=== PATIENT | female | born 1990 ===

== ENCOUNTER 2017-08-06 17:28 | Emergency (ER) | payer SELFPAY ==
[2017-08-06 18:08] VITALS: RESP 20; O2SAT 100
--- NOTE | 2017-08-06 19:59 | C.PDOC ---
History Of Present Illness 27 y/o female c/o 4 days of dry persistent cough with runny nose, pleuritic cp when coughing and sob when coughing. no fevers. no sick contacts. no recent travel. Time Seen by Provider: 08/06/17 19:27 Chief Complaint (Nursing): Cough, Cold, Congestion History Per: Patient History/Exam Limitations: no limitations Onset/Duration Of Symptoms: Days (5) Current Symptoms Are (Timing): Still Present Sick Contacts (Context): None Associated Symptoms: Cough. denies: Fever, Chills Ear Symptoms: Bilateral: None Past Medical History Reviewed: Historical Data, Nursing Documentation, Vital Signs Vital Signs: Last Vital Signs Temp 98.2 F 08/06/17 18:06 Pulse 73 08/06/17 18:06 Resp 20 08/06/17 18:06 BP 142/89 08/06/17 18:06 Pulse Ox 100 08/06/17 19:58 - Medical History PMH: No Chronic Diseases Family History: States: Unknown Family Hx - Social History Hx Tobacco Use: No Hx Alcohol Use: No Hx Substance Use: No - Immunization History Hx Tetanus Toxoid Vaccination: Yes Hx Influenza Vaccination: No Hx Pneumococcal Vaccination: No Review Of Systems Constitutional: Negative for: Fever, Chills Cardiovascular: Negative for: Chest Pain, Palpitations Respiratory: Positive for: Cough, Shortness of Breath (when coughing), Pleuritic Pain Gastrointestinal: Negative for: Abdominal Pain Physical Exam - Physical Exam Appears: Non-toxic, Other (uncomfortable with dry persistent cough) Skin: Warm, Dry Head: Atraumatic, Normacephalic Eye(s): bilateral: Normal Inspection Oral Mucosa: Moist Tongue: Normal Appearing Throat: No Erythema, No Exudate Neck: Supple Chest: Symmetrical, No Deformity, No Tenderness Cardiovascular: Rhythm Regular, No Murmur Respiratory: Normal Breath Sounds, No Accessory Muscle Use, No Rales, No Rhonchi , No Wheezing Gastrointestinal/Abdominal: Soft, No Tenderness ED Course And Treatment O2 Sat by Pulse Oximetry: 100 Medical Decision Making Medical Decision Making: pt with persistent cough, lungs cta, cxr no acute disease on my view. pt given tessalon, saline and albuterol nebs, now with decreased cough and feeling better. . will d/c home with albuterol mdi and tessalon perles. Disposition Counseled Patient/Family Regarding: Studies Performed, Diagnosis, Need For Followup, Rx Given - Disposition Referrals: [facility] [Outside] Disposition: HOME/ ROUTINE Disposition Time: 21:35 Condition: IMPROVED Additional Instructions: Tylenol or Motrin for pain. Tessalon perles and Albuterol for cough. Follow up with your doctor or in medical clinic in a few days. Tylenol o Motrin para el dolor. Tessalon perles y Albuterol para la tos. Yan un seguimiento con [place] mdico o en la clnica mdica en unos epstein. Instructions: Upper Respiratory Infection (ED) Forms: Gen Discharge Inst [place], [facility] ([place]) - Clinical Impression Clinical Impression: Upper respiratory infection
[2017-08-06] MEDS ORDERED: Albuterol 0.083% Inhal Sol (2.5 mg/3 mL) UD ONE ×2 (20:44→21:00)
[2017-08-06] MEDS ORDERED: Albuterol 0.083% Inhal Sol (2.5 mg/3 mL) UD INH STA (20:46)
[2017-08-06 21:52] VITALS: BP 130/85; PULSE 72; TEMP 97.4
--- NOTE | 2017-08-07 08:39 | RAD ---
Chest x-ray single frontal view History: Cough. Comparison: 08/04/2017 Findings: Prominent diffuse confluent bilateral airspace opacities throughout both lungs. Associated moderate to severe venous congestion. More confluent airspace opacification at the right lung base. Cardiomegaly. Degenerative changes in the spine. Impression: Prominent diffuse confluent bilateral airspace opacities throughout both lungs. Associated moderate to severe venous congestion. More confluent airspace opacification at the right lung base. Cardiomegaly.
--- NOTE | 2017-08-07 12:45 | CARD ---
APPROVED REPORT EKG Measurement Heart [id number] <Conclusion> Normal sinus rhythm Normal ECG
== END 2017-08-06 21:54 | disposition home or self-care (01) ==
LOC: C.ER 17:28
DX: J06.9 Acute upper respiratory infection, unspecified (principal)

== ENCOUNTER 2018-06-01 11:58 | Emergency (ER) | payer OTHER ==
--- NOTE | 2018-06-01 12:55 | OBHP ---
Datetime: 06/01/2018 12:42 IP Adm Impression: , intrauterine IP Admit Plan: Observation/Evaluation; Discharge home Admit Comment, IP Provider: with IUP at 35+4 weeks by LMP 09/25/17 presents with decreaed fet al movement, cough POB: 1 FT , 1 SAB PGYN: LMP 09/25, denies STIs, denies abnormal paps PMH: denies PSH: roel NKDA taking vitamins unsure if has had flu shot viatls stable afebrile category 1 tracing some irritabilty on monitor, cervix is closed and firm, no symptoms of labor plan: explained kick counts patient has US appt next week on Friday recommended OTC cepachol or guafenesin for cough relief Dc home FHR - Baseline A Provider: 140 Membranes, Provider: Intact Gestation - Est Wks by US: 35+4 EGA AdmitDate IP: 35.4 Vital Signs Provider: Reviewed; Within Normal Limits IP Chief Complaint: Maternal discomfort NICHD Accel Fetus A IP Provider: 15X15 FHR Category Provider Fetus A: Category I NICHD Decel Fetus A IP Provider: None Dilatation, Provider: 0 Effacement, Provider: 0 Station, Provider: -3
[2018-06-02 13:55] VITALS: TEMP 99.3
== END 2018-06-01 13:10 | disposition home or self-care (01) ==
LOC: C.EROB 11:58
DX: O36.8130 Decreased fetal movements, third trimester, not applicable or unspecified (principal); Z3A.35 35 weeks gestation of pregnancy

== ENCOUNTER 2018-06-16 08:20 | Inpatient (IN) | payer MEDICAID, OTHER ==
[2018-06-16] MEDS ORDERED: Lactated Ringer's 1,000 ML IV ONE (09:47)
--- NOTE | 2018-06-16 10:11 | OBHP ---
Datetime: 06/16/2018 09:52 IP Adm Impression: Term, intrauterine ; No Active Labor; Ruptured Membranes IP Admit Plan: Admit to unit; Initiate labor protocol Admit Comment, IP Provider: 28 y.o. , LMP 09/25/17, YOSELYN 07/02/18, EGA 37w 5d c/o ROM at 0500 hours with onset of Ctx at the same time, every 30 minute, pain scale 3/10. Also, c/o nausea and vo miting x 5 episodes. Denies headaches, RUQ or epigastric pain. (+) AFM; denies VB. care: [facility] - no issues P Ob: 2007, , male, 4lb at 38weeks, [facility]; no complications 2014, Spont Ab, 12 weeks, n o D_C P [employer]: 12 x monthly x 3. Denies h/o STIs, abnormal Pap, myomata, ovarian cysts PMH: denies PSH: denies NKDA Meds: PNV - QD, last took 06/15 @ 1300 hours Soc HX: denies tobacco, illicit dirug or EtOH use. Lives wtih FOB; together x 7 years. Son lives i n [facility]. Unemployed Fam Hx: Mother alive 52 y.o. Father hari 54 y.o., both, no med issues. No known fam h/o cancer P.E.: as above. Small, in NAD. Awake, alert, oriented to time, person and place. 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 Assessment: 28 y.o. P1011, 37w 5d premature ROM, Category 1 tracing. D/W patient possible cervical ripening and possible pitocin augmentation. Also discussed options for pain management. Patient expr essed an understanding and offered no questions. Patient is clinically stable. Plan: 1) Admit 2) NPO 3) Admissions labs 4) Continuous EFM 5) Observe for progression of labor 6) Anticipate vaginal delivery. Pelvic Type - PN: Adequate Extremities - PN: Normal Abdomen - PN: Normal Back - PN: Normal Breast - PN: Not Done Lungs - PN: Normal Heart - PN: Normal Thyroid - PN: Not Done Neurologic - PN: Normal HEENT - PN: Normal General - PN: Normal Presentation-Admit: Vertex FHR - Baseline A Provider: 145 Membranes, Provider: Ruptured Contraction Comments Provider: 2 Comments, ACOG Physical Exam: Abdomen: Gravid. Soft. Fundal height 36 cm Perineum: wet Speculum: (+) pooling; (+) nitrazine Extremities: no calf tenderness or edema All other systems reviewed and are negative. Gestation - Est Wks by US: 37 w 5 d IP Hx Assessment: The History has been Reviewed and is Current EGA AdmitDate IP: 37.5 IP Indication for Induction: Not Applicable IP Chief Complaint: Suspected ruptured membranes NICHD Variability Prov Fetus A: Moderate 6-25bpm NICHD Accel Fetus A IP Provider: 15X15 Dilatation, Provider: 2 Effacement, Provider: 30 Station, Provider: -3 Genitourinary Exam: Normal
--- NOTE | 2018-06-16 10:14 | OBADHP ---
Datetime: 06/16/2018 09:52 Admit Comment, IP Provider: 28 y.o. , LMP 09/25/17, YOSELYN 07/02/18, EGA 37w 5d c/o ROM at 0500 hours with onset of Ctx at the same time, every 30 minute, pain scale 3/10. Also, c/o nausea and vo miting x 5 episodes. Denies headaches, RUQ or epigastric pain. (+) AFM; denies VB. 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 Denies h/o STIs, abnormal Pap, myomata, ovarian cysts PMH: denies PSH: denies NKDA Meds: PNV - QD, last took 06/15 @ 1300 hours Soc HX: denies tobacco, illicit dirug or EtOH use. Lives wtih FOB; together x 7 years. Son lives i n [facility]. Unemployed Fam Hx: Mother alive 52 y.o. Father hari 54 y.o., both, no med issues. No known fam h/o cancer P.E.: as above. Small, in NAD. Awake, alert, oriented to time, person and place. 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 Assessment: 28 y.o. P1011, 37w 5d premature ROM, Category 1 tracing. D/W patient possible cervical ripening and possible pitocin augmentation. Also discussed options for pain management. Patient expr essed an understanding and offered no questions. Patient is clinically stable. Plan: 1) Admit 2) NPO 3) Admissions labs 4) Continuous EFM 5) Observe for progression of labor 6) Anticipate vaginal delivery. Pelvic Type - PN: Adequate Extremities - PN: Normal Abdomen - PN: Normal Back - PN: Normal Breast - PN: Not Done Lungs - PN: Normal Heart - PN: Normal Thyroid - PN: Not Done Neurologic - PN: Normal HEENT - PN: Normal General - PN: Normal Presentation-Admit: Vertex FHR - Baseline A Provider: 145 Membranes, Provider: Ruptured Contraction Comments Provider: 2 Comments, ACOG Physical Exam: Abdomen: Gravid. Soft. Fundal height 36 cm Perineum: wet Speculum: (+) pooling; (+) nitrazine Extremities: no calf tenderness or edema All other systems reviewed and are negative. Gestation - Est Wks by US: 37 w 5 d IP Hx Assessment: The History has been Reviewed and is Current IP Chief Complaint: Suspected ruptured membranes NICHD Variability Prov Fetus A: Moderate 6-25bpm NICHD Accel Fetus A IP Provider: 15X15 Dilatation, Provider: 2 Effacement, Provider: 30 Station, Provider: -3 Genitourinary Exam: Normal EGA AdmitDate IP: 37.5 IP Adm Impression: Term, intrauterine ; No Active Labor; Ruptured Membranes IP Admit Plan: Admit to unit; Initiate labor protocol Datetime: 06/01/2018 12:42 Vital Signs Provider: Reviewed; Within Normal Limits FHR Category Provider Fetus A: Category I NICHD Decel Fetus A IP Provider: None
[2018-06-16 10:18] LABS: BASO % 0.2 % (0.0-2.0); EOS # 0.1 K/uL (0.0-0.7); EOS % 0.7 % (0.0-4.0); HEMOGLOBIN 12.2 g/dL (11.0-16.0); LYMPH # 2.4 K/uL (1.0-4.3); LYMPH % 20.5 % (20.0-40.0); MEAN CELL VOLUME 88.9 fL (81.0-99.0); MEAN CORPUSCULAR HEMOGLOBIN 30.7 pg (27.0-31.0); MEAN CORPUSCULAR HGB CONC 34.5 g/dL (33.0-37.0); MEAN PLATELET VOLUME 10.2 fL (7.2-11.7); MONO # 0.8 K/uL (0.0-0.8); MONO % 6.8 % (0.0-10.0); NEUT # 8.3 K/uL (1.8-7.0); NEUT % 71.8 % (50.0-75.0); RBC 3.98 Mil/uL (3.80-5.20); RED CELL DISTRIBUTION WIDTH 13.6 % (11.5-14.5); WHITE BLOOD COUNT 11.6 K/uL (4.8-10.8)
[2018-06-16 10:21] LABS: URINE BILIRUBIN NEGATIVE (NEGATIVE); URINE BLOOD NEGATIVE (NEGATIVE); URINE CLARITY Hazy (Clear); URINE COLOR Yellow (YELLOW); URINE GLUCOSE (UA) NORMAL (Normal); URINE LEUKOCYTE ESTERASE NEG Leu/uL (Negative); URINE PROTEIN NEGATIVE (NEGATIVE); URINE UROBILINOGEN NORMAL mg/dL (0.2-1.0)
[2018-06-16 10:44] LABS: ALB/GLOB RATIO 1.1 (1.0-2.1); ALBUMIN 3.7 g/dL (3.5-5.0); ALT/SGPT 20 U/L (9-52); AST/SGOT 15 U/L (14-36); BLOOD UREA NITROGEN 4 mg/dL (7-17); CALCIUM 8.8 mg/dl (8.6-10.4); GFR NON-AFRICAN AMERICAN > 60
[2018-06-16] MEDS ORDERED: Lactated Ringer's 1,000 ML IV SCH (11:00)
[2018-06-16] MEDS ORDERED: Bupivacaine HCl/FentaNYL Cit 100 ML EPI ONE (15:07)
--- NOTE | 2018-06-16 15:39 | OBPN ---
Datetime: 06/16/2018 15:31 IP Progress Impression Other: Latent phase of labor IP Procedures: Sterile Vag Exam IP Progress Plan: Cervical Ripening; Anticipate Vaginal Delivery Membranes, Provider: Ruptured Contraction Comments Provider: 3 minutes FHR - Baseline A Provider: 140 Gestation - Est Wks by US: 37w 5d IP Progress Note Comment: Patient examined at 1255 hours: received in LDR#3. Reports low back pain, and mild abdominal tightness/ pressure, pain scale 5/10. (+) AFM Cervical exam: as above. Cytotec 25 micrograms inserted per vagina. Assessment: 28 y.o. P1011, 37w 5d, prelabor ROM x 6 hours. Category 1 tracing. Afebrile, Vital si gns stable. Clinically stable. Plan: 1) Cervical ripening - as above. 2) Pain management, upon request 3) Anticipate vaginal delivery Vital Signs Provider: Reviewed; Within Normal Limits NICHD Accel Fetus A IP Provider: 15X15 FHR Category Provider Fetus A: Category I NICHD Variability Prov Fetus A: Moderate 6-25bpm Dilatation, Provider: 2 Effacement, Provider: 40 Station, Provider: -3 NICHD Decel Fetus A IP Provider: None Datetime: 06/16/2018 09:52 Presentation-Admit: Vertex
[2018-06-16] MEDS ORDERED: Lidocaine 2% MPF (5 ml) Inj ONE ×4 (16:19→23:23)
[2018-06-16] MEDS ORDERED: Oxytocin 30 UNIT 30 UNITS/500 ML BAG IV ONE ×2 (17:16→17:26)
--- NOTE | 2018-06-16 17:31 | OBPN ---
Datetime: 06/16/2018 17:27 IP Progress Impression: Normal progression of labor IP Procedures: Intrauterine Pressure Catheter; Sterile Vag Exam IP Progress Plan: Augmentation; Anticipate Vaginal Delivery Contraction Comments Provider: 1-3 FHR - Baseline A Provider: 145 Gestation - Est Wks by US: 37w 5d Presentation-Admit: Vertex IP Progress Note Comment: Patient is S/P epidural Cervical exam as above. IUPC inserted without incident Assessment: 28 y.o. P1011, 37w 5d, prelabor ROM x 12 hours. Afebrile, vital signs stable. Categor y 1 tracing. Plan: 1) Start pitocin 2) Anticipate vaginal delivery Vital Signs Provider: Reviewed; Within Normal Limits NICHD Accel Fetus A IP Provider: 15X15 FHR Category Provider Fetus A: Category I NICHD Variability Prov Fetus A: Moderate 6-25bpm Dilatation, Provider: 3 Effacement, Provider: 50 Station, Provider: -3 NICHD Decel Fetus A IP Provider: None
[2018-06-16] MEDS ORDERED: Oxycodone/Acetaminophen 5/325 mg Tab PO PRN (23:43)
--- NOTE | 2018-06-17 00:06 | OBDS ---
DELIVERY PERSONNEL Delivery Doctor: Yoan Chavira MD Scrub Nurse: Inna Ramirez Seafood Specialist: Hannah Wallace RN Anesthesiologist: DR MESSINA MATERNAL INFORMATION Delivery Anesthesia: Epidural Medications in Delivery: PITOCIN Placenta Cultured: No Maternal Complications: None RN Comments: ALIVE FEMALE INFANT DELIVERED WITH [address]ST [address] CHAVIRA ATTENDED DELIVERY. ATTENDED BY STEVO HAWK Provider Comments: Uncomplicated vaginal delivery live female infant, JACKIE, compound presentation, lo ose nuchal cord x 1, easliy reduced over 's hed. Infant's mouth and nose bulb-suctioned upon de livery. placed on mother's abdomen. Delayed cord clamping; umbilical cord then doubly clamped and cut Spontaneous delivery of placenta - 3 vessel cord, grossly intact Uterine exploration performed, uterus emptied of clots; contracted and firm Cervix, vagina and perineum - lacerations as above; repaired. and mother bonding; both in stable condition Patient tolerated procedure well EBL 300 m: Weight 6lb 11oz 's 9/9 LABOR SUMMARY EDC: 07/02/2018 00:00 No. Babies in Womb: 1 Attempted: No Labor Anesthesia: Epidural LABOR INFORMATION Reason for Induction: Premature Rupture of Membranes Onset of Labor: 06/16/2018 05:00 Complete Dilatation: 06/16/2018 22:22 Cervical Ripening Agents: Cytotec @ (Annotations: 25 mcg vaginal inserted by Dr. Chavira) Oxytocin: Induction Group B Beta Strep: Negative (Annotations: 06/03/18) Antibiotics # of Doses: 0 Antibiotics Time of Last Dose: 0 Steroids Given: None Reason Steroids Not Administered: Not Applicable MEMBRANES Membranes Rupture Method: Spontaneous Rupture of Membranes: 06/16/2018 05:00 Length of Rupture (hrs): 18.13 Amniotic Fluid Color: Clear Amniotic Fluid Amount: Small Amniotic Fluid Odor: Normal STAGES OF LABOR Stage 1 hrs: 17 Stage 1 min: 22 Stage 2 hrs: 0 Stage 2 min: 46 Stage 3 hrs: 0 Stage 3 min: 4 Total Time in Labor hrs: 18 Total Time in Labor min: 12 VAGINAL DELIVERY Laceration Extension: First Degree Laceration Type: Vaginal Other Laceration: LACERATION- LEFT LABIA Laceration Repair: Yes Laceration Repair Note: 3-0 chromic, interupted - left labium 2-0 and 3-0 chromic, routine fashion - vaginal Hemostasis assured. Patient tolerated procedure well Initial Vag Sponge Count: 10+1 Final Vag Sponge Count: 10+1 Initial Vag Sharps Count: 0 Final Vag Sharps Count: 2 Sponge Count Correct: Yes Sharps Count Correct: Yes Count Comment: Correct BABY A INFORMATION Infant Delivery Date/Time: 06/16/2018 23:08 Method of Delivery: Vaginal Born in Route : No : N/A Forceps: N/A Vacuum Extraction: N/A Shoulder Dystocia : No SHOULDER DYSTOCIA BABY A Infant Delivery Date/Time: 06/16/2018 23:08 PRESENTATION/POSITION BABY A Presentation: Compound Cephalic Presentation: Vertex Vertex Position: Left Occipital Anterior Breech Presentation: N/A PLACENTA INFORMATION BABY A Placenta Delivery Time : 06/16/2018 23:12 Placenta Method of Delivery: Spontaneous Placenta Status: Delivered SCORES BABY A Heart Rate 1 min: >100 bpm Resp Effort 1 min: Good Cry Reflex Irritability 1 min: Cough or Sneeze or Pulls Away Muscle Tone 1 min: Active Motion Color 1 min: Body [place], Extremities Blue SCORE 1 MIN: 9 Heart Rate 5 min: >100 bpm Resp Effort 5 min: Good Cry Reflex Irritability 5 min: Cough or Sneeze or Pulls Away Muscle Tone 5 min: Active Motion Color 5 min: Body [place], Extremities Blue SCORE 5 MIN: 9 INFANT INFORMATION BABY A Gestational Age at Delivery: 37.5 Gestational Status: Term Infant Outcome : Liveborn Infant Condition : Stable Sex: Female IDENTIFICATION/MEDS BABY A ID Band Number: [id number] ID Band Location: Left Leg; Left Arm Sensor Applied: Yes Sensor Number: [id number] Sensor Location : Cord Clamp Vitamin K Given : Aquamephyton 1 mg IM; Left Thigh Erythromycin Given: Given Both Eyes WEIGHT/LENGTH BABY A Infant Birthweight (gms): 3035 Weight (lb): 6 Infant Weight (oz): 11 Infant Length Inches: 19.00 Infant Length cms: 48.3 CORD INFORMATION BABY A No. Cord Vessels: 3 Nuchal Cord : Around Neck x1, Loose Infant Suction: Mouth ASSESSMENT BABY A Complications: None Physical Findings at Delivery: Within Normal Limits Respirations: Appears Normal Bread Room Hand/ALS Called : No Care By: STEVO REYES Transferred To: Remains with Mother
[2018-06-17] MEDS ORDERED: Oxycodone/Acetaminophen 5/325 mg Tab ONE (00:21)
[2018-06-17] MEDS: Benzocaine/Menthol 20%-0.5% Topical Spray (60 ml) TOP PRN (02:18)
[2018-06-17 07:04] LABS: BASO # 0.1 K/uL (0.0-0.2); BASO % 0.4 % (0.0-2.0); EOS % 0.1 % (0.0-4.0); HEMOGLOBIN 11.8 g/dL (11.0-16.0); LYMPH # 2.4 K/uL (1.0-4.3); LYMPH % 12.9 % (20.0-40.0); MEAN CELL VOLUME 89.1 fL (81.0-99.0); MEAN CORPUSCULAR HEMOGLOBIN 30.9 pg (27.0-31.0); MEAN CORPUSCULAR HGB CONC 34.7 g/dL (33.0-37.0); MEAN PLATELET VOLUME 10.1 fL (7.2-11.7); MONO # 1.6 K/uL (0.0-0.8); MONO % 8.5 % (0.0-10.0); NEUT # 14.5 K/uL (1.8-7.0); NEUT % 78.1 % (50.0-75.0); RBC 3.81 Mil/uL (3.80-5.20); RED CELL DISTRIBUTION WIDTH 13.4 % (11.5-14.5); WHITE BLOOD COUNT 18.5 K/uL (4.8-10.8)
[2018-06-17] MEDS: Multiple Vitamins Tab PO SCH (09:01)
[2018-06-18] MEDS: Benzocaine/Menthol 20%-0.5% Topical Spray (60 ml) TOP PRN (06:09)
--- NOTE | 2018-06-18 06:56 | OBPPN ---
Datetime: 06/17/2018 07:09 PP Pain Prov: Within normal limits PP Nausea Prov: Denies PP Flatus Prov: Yes PP BM Prov: No PP Heart Prov: Normal PP Lungs Prov: Normal PP Abdomen/Uterus Prov: Abnormal PP Lochia Prov: Normal PP Extremities Prov: Normal PP C/S Incision Prov: Not Applicable PP Progress Prov: Normal PP Comments Phys Exam Prov: Abdomen: soft, non-distended, mild right sided tenderness to palpation, no guarding, no rebound, fundal height is 3 finger breadths above umbilicus. PP Impression Prov: Normal progression PP Plan Prov: Continue present management PP Progress Note Prov: 28 year old female PPD#1 s/p SNVD. Patient seen and examined at [facility]. Report 4/10 pain, improved with anesthetic spray to perineum and Motrin. Patient encouraged to ta ke Motrin every 6 hours for inflammation. Positive lochia rubra and states she has heavy bleeding whe n she stands up. She is ambulating in her room and tolerating diet and oral hydration. She reports na usea overnight, but has since resolved. Reports flatus and urination, but denies bowel movement. She is . Denies fever, chills, current nausea, abdominal pain, vomiting, swelling, chest beckie n, shortness of breath and headache. Assessment and Plan: 28 year old female PPD#1 s/p SNVD WBC increased from 11.6 to 18.5 today VSS, Afebrile/ Denies chills, night sweats Repeat CBC in AM -H/H 11.8/33.9, stable Drinks little to no water/ Probable Dehydration Continue pain management -Continue vitamins -Continue regular diet -Continue Colace for constipation -Encourage ambulation -Encourage oral hydration -Continue present management Case discussed with Dr. Dang. Sabina Monet, PGY-1. IP PP Procedures: None Vital Signs Provider PP: Reviewed; Within Normal Limits Vital Signs Provider Details PP: Afebrile (Annotations: Data stored by CPN on behalf of user)
[2018-06-18 07:32] LABS: BASO # 0.1 K/uL (0.0-0.2); BASO % 0.7 % (0.0-2.0); EOS # 0.4 K/uL (0.0-0.7); EOS % 2.9 % (0.0-4.0); HEMOGLOBIN 11.4 g/dL (11.0-16.0); LYMPH # 3.7 K/uL (1.0-4.3); LYMPH % 28.8 % (20.0-40.0); MEAN CELL VOLUME 90.2 fL (81.0-99.0); MEAN CORPUSCULAR HEMOGLOBIN 32.1 pg (27.0-31.0); MEAN CORPUSCULAR HGB CONC 35.6 g/dL (33.0-37.0); MEAN PLATELET VOLUME 10.3 fL (7.2-11.7); MONO # 0.8 K/uL (0.0-0.8); MONO % 6.5 % (0.0-10.0); NEUT # 7.9 K/uL (1.8-7.0); NEUT % 61.1 % (50.0-75.0); RBC 3.54 Mil/uL (3.80-5.20); RED CELL DISTRIBUTION WIDTH 13.9 % (11.5-14.5); WHITE BLOOD COUNT 12.9 K/uL (4.8-10.8)
[2018-06-18] MEDS ORDERED: Influenza Vaccine 60 MCG/0.5 ML SYR (3 yr & up) IM ONE (09:57)
[2018-06-18] MEDS: Multiple Vitamins Tab PO SCH (10:11)
[2018-06-18 19:03] VITALS: BP 124/79; PULSE 83; RESP 18; TEMP 99.1; O2SAT 99
== END 2018-06-18 13:40 | disposition home or self-care (01) | DRG 560 ==
LOC: C.EROB 08:20 → C.4D 09:47 → C.4M 06-17 01:30
PROVIDERS: ADMIT Obstetrics & Gynecology; ATTEND Obstetrics & Gynecology
PROC: 10E0XZZ Delivery of Products of Conception, External Approach (ICD-10-PCS; principal; 2018-06-16)
PROC: 0HQ9XZZ Repair Perineum Skin, External Approach (ICD-10-PCS; 2018-06-16)
PROC: 3E0P7VZ Introduction of Hormone into Female Reproductive, Via Natural or Artificial Opening (ICD-10-PCS; 2018-06-16)
DX: O42.02 Full-term premature rupture of membranes, onset of labor within 24 hours of rupture (principal); E86.0 Dehydration; O69.81X0 Labor and delivery complicated by cord around neck, without compression, not applicable or unspecified; O70.0 First degree perineal laceration during delivery; O75.89 Other specified complications of labor and delivery; Z3A.37 37 weeks gestation of pregnancy; Z37.0 Single live birth